=== PATIENT | female | born 1940 | race Caucasian/White ===

== ENCOUNTER 2016-11-12 20:12 | Emergency (ER) | payer MEDICARE ==
[2016-11-12] MEDS ORDERED: oxyCODONE/Acetamin 5/325 MG* TAB PO ONE ×2 (22:14→23:18)
--- NOTE | 2016-11-12 22:18 | ED ---
Upper Extremity Pain - HPI Summary HPI Summary: 76F presents with left wrist pain earlier today. She fell onto her outstretch hand after tripped. Her fall was a mechanical fall she denies any chest pain or SOB. 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 She denies any numbness or tingling. She has not taken anything for her pain. She states pain is greatest where her watch was and there is some bruising from her watch. - History of Current Complaint Chief Complaint: EDExtremityUpper Stated Complaint: FALL/LEFT WRIST AND ARM INJURY Time Seen by Provider: 11/12/16 20:24 - Allergies/Home Medications Allergies/Adverse Reactions: Allergies Allergy/AdvReac Type Severity Reaction Status Date / Time No Known Allergies Allergy Verified 11/12/16 22:27 PMH/Surg Hx/FS Hx/Imm Hx Endocrine/Hematology History: Denies: Hx Anticoagulant Therapy Respiratory History: Denies: Hx Asthma Infectious Disease History: Denies: Traveled Outside the [place] in Last 30 Days - Family History Known Family History: Positive: Cardiac Disease - Social History Alcohol Use: Daily Substance Use Type: Reports: None Smoking Status (MU): Unknown if Ever Smoked Review of Systems Negative: Fever Negative: Chest Pain Negative: Shortness Of Breath Positive: Myalgia - left wrist pain All Other Systems Reviewed And Are Negative: Yes Physical Exam Triage Information Reviewed: Yes Vital Signs On Initial Exam: Initial Vitals Temp Pulse Resp BP Pulse Ox 98.4 F 72 18 144/84 100 11/12/16 20:14 11/12/16 20:14 11/12/16 20:14 11/12/16 20:14 11/12/16 20:14 Vital Signs Reviewed: Yes Appearance: Positive: Well-Appearing Skin: Positive: Warm, Dry Head/Face: Positive: Normal Head/Face Inspection Eyes: Positive: Normal, Conjunctiva Clear Respiratory/Lung Sounds: Positive: Clear to Auscultation, Breath Sounds Present Cardiovascular: Positive: Normal, RRR Musculoskeletal: Positive: Strength/ROM Intact - fingers, Limited @ - wrist, Other - neg snuff box tenderness, good pulses, capillary refill < 2 secs, no obvious deformity, ecchymosis noted to palmar aspect of forearm Procedures - Splinting Location: wrist left Hand-Made Type: orthoglass Splint: sugar-tong Pre-Proc Neuro Vasc Exam: normal Post-Proc Neuro Vasc Exam: normal Diagnostics - Vital Signs Vital Signs Temp Pulse Resp BP Pulse Ox 11/12/16 20:14 98.4 F 72 18 144/84 100 - Laboratory Lab Statement: Any lab studies that have been ordered have been reviewed, and results considered in the medical decision making process. - Radiology wrist Xray Interpretation: Positive (See Comments) - IMPRESSION: 1. DORSALLY ANGULATED FRACTURE OF THE DISTAL RADIAL METAPHYSIS. 2. OSTEOPENIA. 3. OSTEOARTHRITIS Radiology Interpretation Completed By: Radiologist Course/Dx - Course Course Of Treatment: 76F presents with left wrist pain s/p FOOSH. denies any numbness or tingling. is right handed. no obvious deformity on exam but ecchmoysis and edema is present. neurovascular intact. xray shows distal radial fracture with angulation, placed lidocaine in area and attempted manual in area but due to length of time muscles hand spasmed in place and unable to completely successfully reduce it but patient got some relief. placed in sugar tong. patient says she willl follow up with special surgery in [facility] as knows them for wrist. told to give them a call tomorrow. patient understands and agrees with plan - Diagnoses Differential Diagnosis/HQI/PQRI: Positive: Fracture (Closed), Strain, Sprain Provider Diagnoses: Left radial fracture Discharge - Discharge Plan Condition: Good Disposition: HOME Prescriptions: oxyCODONE/Acetamin 5/325 MG* [Percocet 5/325 TAB*] 1 tab PO Q6H PRN #20 tab MDD 4 PRN Reason: Pain Patient Education Materials: Wrist Fracture in Adults (ED) Referrals: Krunal Herrera MD [Medical Doctor] - Additional Instructions: Keep splint on area and keep dry Call ortho office tomorrow to set up appointment for follow up Use ibuprofen for pain every 6 hours and use narcotic for breakthrough pain Ice, elevate Return to ED if develop numbness or tingling or any new or worsening symptoms
--- NOTE | 2016-11-12 22:52 | RAD ---
HISTORY: Fall, left wrist pain COMPARISONS: None VIEWS: 3, Frontal, lateral, and oblique views of the left wrist FINDINGS: BONE DENSITY: There is diffuse osteopenia. BONES: There is a transverse fracture of the distal radial metaphysis with dorsal angulation. JOINTS: There is osteoarthritis of the first CMC and MCP joints ALIGNMENT: There is no dislocation. SOFT TISSUES: Unremarkable. OTHER FINDINGS: None. IMPRESSION: 1. DORSALLY ANGULATED FRACTURE OF THE DISTAL RADIAL METAPHYSIS. 2. OSTEOPENIA. 3. OSTEOARTHRITIS
[2016-11-13 00:24] VITALS: BP 131/71
== END 2016-11-13 00:24 | disposition home or self-care (01) ==
LOC: ED 20:12
DX: S52.502A Unspecified fracture of the lower end of left radius, initial encounter for closed fracture (principal); W01.0XXA Fall on same level from slipping, tripping and stumbling without subsequent striking against object, initial encounter; Y93.9 Activity, unspecified; Y92.9 Unspecified place or not applicable; M19.032 Primary osteoarthritis, left wrist; M85.832 Other specified disorders of bone density and structure, left forearm
CPT/HCPCS: 99282; A9270-GY